=== PATIENT | female | born 1960 | race Caucasian/White ===

== ENCOUNTER → 2018-03-24 12:39 | Outpatient (CLI) | payer OTHER, MEDICAID, SELFPAY ==
--- NOTE | 2018-03-24 | DI.MRI.S_ITS ---
PROCEDURE: MR CRISTOPHER WO/W CON INDICATIONS: Arthropathy. Evaluate for possible active psoriatic arthritis in the sacroiliac joints. TECHNIQUE: Noncontrast axial and oblique coronal T1 spin echo and STIR through the sacroiliac joints. COMPARISON: None. FINDINGS: Image quality: Excellent. Bones: There is mild periarticular edema and enhancement along the inferior sacroiliac joints bilaterally. There is bilateral joint space narrowing of the sacroiliac joints with mild subchondral sclerosis. Minimal osteophytosis is demonstrated inferiorly. There is a suspected small bony erosion along the inferior left sacroiliac joint within the sacrum.. No bony ankylosis. No suspicious marrow space occupying lesions. Soft tissues: No presacral masses. Rectum appears normal in caliber and wall thickness. No pathologic free pelvic fluid. IMPRESSION: 1. Mild bilateral narrowing and subchondral sclerosis of the sacroiliac joints with mild periarticular edema and enhancement inferiorly. 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 A probable small erosion along the inferior left sacroiliac joint is suggestive of an inflammatory arthropathy. Dictated by: Stu Hong M.D. on 03/24/2018 at 16:01 Approved by: Stu Hong M.D. on 03/24/2018 at 16:09
== END ==
PROVIDERS: Visit Provider Specialist/Technologist Athletic Trainer
DX: M46.1 Sacroiliitis, not elsewhere classified (principal); M12.9 Arthropathy, unspecified
CPT/HCPCS: 72197; A9579

== ENCOUNTER 2018-11-09 10:06 | Emergency (ER) | payer OTHER, MEDICAID, SELFPAY ==
[2018-11-09 10:18] VITALS: BP 168/93; PULSE 111; RESP 20; TEMP 36.9; O2SAT 100; BMI 37.1
--- NOTE | 2018-11-09 10:40 | ED.SKABFB ---
HPI - Skin/Abscess/Foreign Bdy General Chief complaint: Skin/Abscess/Foreign Body Stated complaint: Possible medication reaction Time Seen by Provider: 11/09/18 10:40 Source: patient Mode of arrival: ambulatory Limitations: no limitations History of Present Illness HPI narrative: This is a 58-year-old female who comes in with complaint of rash on her abdomen and leg. Patient states it started in the last 2 days. Patient states that is very itchy she has been on azithromycin but the rash actually started before she started the azithromycin. Patient states that the Zithromax and was started for a sinus infection and she has had some nasal congestion. She says she has felt warm but has not had any objective fevers. Patient has not any chest pain or shortness of breath, she denies any abdominal pain. No nausea or vomiting. She has not had any new issues with bowel movements. She denies any issues with urination. She is on Talz for lupus, she was on Humira in the past for psoriatic arthritis and was changed to this as that was not the appropriate coverage and likely made her lupus flare. Related Data Previous Rx's Medication Instructions Recorded prednisone 50 mg PO DAILY #3 tab 11/09/18 Allergies Allergy/AdvReac Type Severity Reaction Status Date / Time meperidine [From Demerol] Allergy Severe Rash Verified 11/09/18 10:28 Sulfa (Sulfonamide Allergy Severe Rash Verified 11/09/18 10:28 Antibiotics) Review of Systems Review of Systems ROS Unobtainable: All systems reviewed & are unremarkable except as noted in HPI and below PFSH Medical History (Updated 11/09/18 @ 11:07 by Pam Mares DO) Lupus (Acute) Psoriatic arthritis (Acute) Social History Smoking Status: Never smoker Social History Smoking Status: Never smoker Exam Narrative Exam Narrative: GEN: well nourished, well appearing female, alert and oriented x 3, patient appears to be in no mild distress. HEENT: Atraumatic, pupils are equal round reactive to light, extraocular movements are intact, nares are clear, TMs are clear with no fluid, there is no conjunctival pallor. Throat is clear without any exudates, erythema, tonsillar enlargement or uvular deviation, no swelling of the oropharynx or uvula. Patient has some erythema of the cheeks patient states this is secondary to her rosacea and normal for her. HEART: Regular rate and rhythm without murmur, clicks, rubs. Pulses are equal in upper and lower extremities LUNGS:Lungs clear to auscultation, no wheezes, rales, crackles, chest moves symmetrically ABD:bowel sounds normal, soft, non-tender, no guarding, rebound, rigidity, no masses noted, no hepatosplenomegaly :No CVA tenderness MSCL: Non-tender, full range of motion, normal gait NEURO:CN 2-12 intact, sensation normal SKIN: Patient has large erythematous raised patch consistent with a wheal on her left abdomen as well as several small patches on her right abdomen. Patient has a small erythematous raised patch on her left calf that is only a cm. Patient does not have any other rash noted elsewhere. No vesicles or open wounds. Initial Vital Signs Initial Vital Signs: Vital Signs Temperature 98.5 F 11/09/18 10:18 Pulse Rate 111 H 11/09/18 10:18 Respiratory Rate 20 11/09/18 10:18 Blood Pressure 168/93 H 11/09/18 10:18 Pulse Oximetry 100 11/09/18 10:18 Course Orders Ordered: Discontinued Medications Prednisone (Deltasone) 60 mg PO NOW ONE Stop: 11/09/18 10:54 Last Admin: 11/09/18 11:01 Dose: 60 mg Documented by: BJ Vital Signs Vital signs: Vital Signs - 8 hr 11/09/18 11:02 Pulse Rate 77 Respiratory Rate 16 Blood Pressure [Left Arm] 136/77 Pulse Oximetry 98 MDM - Skin/Abscess/Foreign Bdy MDM Narrative Medical decision making narrative: Discussed with patient I would suspect she has have any reaction her medication, we discussed it could possibly be azithromycin but she actually started having rash before so this is very low likelihood. She has on an injectable medication she is supposed to reinjected tomorrow and I asked that she re-contact her monitoring analyst to discuss whether she should continue, change her medications or have any further intervention. She has been having sinus symptoms we discussed she can try Flonase which her physician has already recommended and she has been trying with some improvement. She does have a history of hypertension so we discussed not using any Sudafed. We discussed signs and symptoms to watch for and reasons to return emergently Discharge Plan Departure Patient Disposition: Home Clinical Impression: Allergic reaction Discharge Date/Time: 11/09/18 11:12 Instructions: DI for General Allergic Reactions Activity Restrictions/Additional Instructions: Follow-up with your physician tomorrow to review whether you should continue to use your injectable medication. Continue prednisone daily until gone. Discussed with your physician they may wish to alter the dosing schedule. Continue Flonase as needed for nasal congestion. Return to the emergency department for fevers greater than 100.4 F, new swelling of your lips, tongue, airway if you are having difficulty with breathing, wheezing or stridor, persistent vomiting, passing out, black or bloody stools, worsening rash or other new or concerning symptoms Prescriptions: New prednisone 50 mg tablet 50 mg PO DAILY Qty: 3 RF: 0
[2018-11-09] MEDS: predniSONE 20 MG TABLET 60 MG PO (11:01)
[2018-11-09 11:02] VITALS: BP 136/77; PULSE 77; RESP 16; O2SAT 98
--- NOTE | 2018-11-09 11:11 | PC.NURSE ---
Pt reports Lupus and psoriatic arthritis taking Taltz inj. has been on it for 2 weeks. 2 large areas of redness on abd with itching. took benadryl which helped with itching and cortisone with no relief. Airway patent. is not having breathing difficulty or wheezing noted.
== END 2018-11-09 11:12 | disposition home or self-care (01) ==
PROVIDERS: Emergency Provider Emergency Medicine
DX: T78.40XA Allergy, unspecified, initial encounter (principal); T50.905A Adverse effect of unspecified drugs, medicaments and biological substances, initial encounter
CPT/HCPCS: 99282; 99283